=== PATIENT | male | born 1980 | race Caucasian/White ===

== ENCOUNTER 2016-06-11 15:43 | Emergency (ER) | payer SELFPAY ==
--- OUTSIDE RECORDS SUMMARY | 2016-06-11 16:24 | XMS REPORT | Continuity of Care Document ---
:1980 Demographics Address [address] [place] [address] Home Phone [phone] Preferred Language Unknown Marital Status Unknown Congregational Affiliation Zoroastrianism Race Unknown Ethnic Group Unknown Author Organization [facility] ([facility]) Address [address] [place] [address] Phone [phone] Care Team Providers Name Role Phone Unavailable Primary Care Provider Unavailable Source Comments This disclosure is being made pursuant to the Care Everywhere program, applicable federal and state laws, and may not contain all informaitonavailable regarding this patient.[facility] ([facility]) Active Allergies and Adverse Reactions Not on File Current Medications Not on file Active Problems Not on file Social History Tobacco Use Types Packs/Day Years Used Date Never Assessed Plan of Care Health Maintenance Due Date Last Done Comments Hepatitis B Vaccine (1 of 3 - Primary Series) 1980 Tdap Vaccine 1989 Lipid Disorder Screening 1996 MMR Vaccine 1996 Td Vaccine 1996 Influenza Vaccine: Seasonal (#1) 10/05/2015 Results from Last 3 Months Not on file
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
[2016-06-11 16:42] LABS: Hematocrit 44.8 % (42.0-52.0); Hemoglobin 15.7 gm/dL (13.5-18.0); Mean Cell Volume 85.7 fl (78-100); Mean Platelet Volume 9.1 fl (6.0-9.5); Neutrophil # 2.8 K/mm3 (1.3-6.0); Neutrophil % 50.9 % (42-75.0); Platelet Count 195 K/mm3 (150-450); Red Blood Count 5.23 M/mm3 (4.7-6.0); Red Cell Distribution Width 12.4 % (11.5-14.0); White Blood Count 5.5 K/mm3 (4.0-10.5)
[2016-06-11 16:57] LABS: Urine Appearance Clear; Urine Bilirubin Negative (NEGATIVE); Urine Blood Negative /ul (NEGATIVE); Urine Color Yellow; Urine Ketone Negative (NEGATIVE); Urine Nitrite Negative (NEGATIVE); Urine Protein 30 mg/dL (NEGATIVE); Urine RBC None Seen /hpf (0-5); Urine Urobilinogen Normal (NORMAL); Urine WBC None Seen /hpf (0-5)
[2016-06-11 16:58] LABS: Urine Bacteria None Seen
[2016-06-11 17:01] LABS: Cocaine Ur Negative (NEGATIVE); Urine Barbiturate Negative (NEGATIVE); Urine Benzodiazepines Negative (NEGATIVE); Urine Opiates Negative (NEGATIVE); Urine PCP Negative (NEGATIVE); Urine THC Negative (NEGATIVE)
[2016-06-11 17:05] LABS: ALT 46 U/L (19-67); AST 16 U/L (0-48); Albumin * 3.6 gm/dl (3.4-5.0); Alkaline Phosphatase * 63 U/L (50-170); Anion Gap 12.4 mmol/L (6.8-13.8); BUN/Creatinine Ratio 12.6 (9.0-21.6); Bilirubin, Total 0.3 mg/dL (0.0-1.1); Blood Urea Nitrogen 13 mg/dL (6-23); Ca. Corrected For Albumin 8.9 mg/dL (8.4-10.2); Calcium * 8.9 mg/dL (7.9-10.9); Carbon Dioxide 27.5 mmol/L (24-32.6); Chloride 107 mmol/L (97-106); Glucose * 124 mg/dL (70-110); Potassium 3.9 mmol/L (3.4-4.6); Sodium 143 mmol/L (132-142); TSH * 2.943 uIU/mL (0.358-3.74); Total Protein 7.4 gm/dL (6.2-8.2)
[2016-06-11 18:14] VITALS: BP 134/98
== END 2016-06-11 18:16 | disposition home or self-care (01) ==
LOC: ER 15:43
DX: R56.9 Unspecified convulsions (principal); Z72.0 Tobacco use
CPT/HCPCS: 36415; 70450; 80053; 80307; 81001; 84439; 84443; 85025; 99282; G0481

== ENCOUNTER 2016-11-03 12:14 | Emergency (ER) | payer OTHER ==
[2016-11-03 12:33] VITALS: BP 164/96
[2016-11-03] MEDS ORDERED: ACETAMINOPHEN 325 MG TABLET PO ONE (13:12)
[2016-11-03] MEDS ORDERED: IBUPROFEN 600 MG TABLET PO ONE (13:12)
[2016-11-03] MEDS ORDERED: IBUPROFEN 600 MG TABLET ONE (13:13)
[2016-11-03] MEDS ORDERED: ACETAMINOPHEN 325 MG TABLET ONE (13:13)
--- NOTE | 2016-11-03 13:23 | ERNOTE ---
Lower Extremity HPI - Narrative Date of Service: 11/03/16 - General Lower Extremities Pain: ankle: right Time Seen by Provider: 11/03/16 12:39 Source: patient, RN notes reviewed Exam Limitations: no limitations - Immun/Allergies/Home Medications Immunizations: IMMUNIZATION HX Immunizations Up to Date Yes History of Influenza Vaccine No Hx Pneumococcal Vaccination No Allergies/Adverse Reactions: Allergies Allergy/AdvReac Type Severity Reaction Status Date / Time aspirin Allergy Severe Verified 11/03/16 12:33 hydrocodone bitartrate Allergy Mild Verified 11/03/16 12:33 [From Vicodin] Home Medications: HOME MEDICATIONS NK [No Home Medication] 06/11/16 [Last Taken Unknown] - History of Present Illness Narrative: 36 y/o male presents to the ED with right lateral ankle pain. He rolled the ankle and fell down while mowing. He works for a lawn care service. He sprained the right ankle approximately a year ago. Date (Duration): 11/03/16 Occurred: this afternoon Location of Incident: work Method of Injury: Reports: twisted Modifying Factors - (Improves): Reports: immobilization Modifying Factors - (Worsens): Reports: movement Associated Symptoms: Reports: unable to bear weight. Denies: snapping, popping sensation Other Injuries: Reports: none Subsequent Symptoms: Denies: sensory loss, numbness, motor loss Prior Treament: Reports: similar symptoms before. Denies: recently seen Review of Systems - Review of Systems Constitutional: Present: no symptoms reported EYE: Present: no symptoms reported ENT: Present: no symptoms reported Respiratory: Present: no symptoms reported Cardiology: Present: no symptoms reported Gastrointestinal/Abdominal: Present: no symptoms reported Genitourinary: Present: no symptoms reported Musculoskeletal: Present: joint pain, joint swelling Skin: Absent: lesions, lumps, change in color Neurological: Present: See HPI Endocrine: Present: no symptoms reported Hematologic/Lymphatic: Absent: easy bruising, easy bleeding Psych: Present: no symptoms reported - Patient's Past Medical History Patient History - Medical: Anxiety, Bipolar, Other Patient History - Cardiac/Respiratory: Hyperlipidemia, Myocardial Infarction Patient History - Cancer: No Hx of Cancer Patient History - Surgical Procedures: Cardiac stent Patient History - Other: None - Family History Mother Family History - Medical: Father Family History - Medical: Diabetes Type 1 Family History - Cardiac/Respiratory: Coronary Heart Disease - Social History Living Situations: home Abuse History: No History of abuse Psych History: Hx of Anxiety, Hx of Bipolar Disorder Smoking Status: Current every day smoker Have you smoked in the past 12 months: Yes Alcohol Use: occasionally Drug Use: none - Immunizations Immunizations Up to Date: Yes Hx Pneumococcal Vaccination: No History of Influenza Vaccine: No Physical Exam - Physical Exam General Appearance: Present: wd/wn, alert, mild distress Head Exam: Present: normal inspection Respiratory: Present: no respiratory distress, no accessory muscle use Peripheral Pulses: N=norm/S=strong/W=weak/B=bound/A=absent: Dorsalis-pedis (R): Strong Extremity Exam: Present: decreased range of motion - Right ankle, bony tenderness - Right lateral ankle, joint swelling - Right lateral ankle Neurological Exam: Present: alert, oriented, normal mood/affect, no motor/ sensory deficits Skin Exam: Present: normal color, warm/dry ED Progress - Vital Signs Patient's Vital Signs:: I have reviewed the patient's vital signs. Vital Signs: Vital Signs 11/03/16 12:29 Temperature 36.3 C L Pulse Rate 116 H Respiratory 16 Rate Blood Pressure 164/96 O2 Sat by Pulse 97 Oximetry - X-Ray X-Ray #1 X-Ray: ankle Interpretation: Reviewed by me X-ray Comments: No acute osseous abnormality present - Progress/Reassessment Chief Complaint: Ankle Injury/ Pain Progress:: Improved Procedures Location: Right ankle Pre-Made Type: MICHEL wrap and Cam boot Alignment good: Yes Splint applied by: Nurse Post-Proc Neuro Vasc Exam: normal Complications: Pt rey procedure well Departure Clinical Impression: Ankle sprain Qualifiers: Encounter type: initial encounter Involved ligament of ankle: unspecified ligament Laterality: right Qualified Code(s): S93.401A - Sprain of unspecified ligament of right ankle, initial encounter - Departure Disposition: Home Follow Up Needed Condition: Stable Instructions: Ankle Sprain Additional Instructions: See occupational health instruction sheet Referrals: Brandy Self, ANGELIQUE [[facility]] -
== END 2016-11-03 13:35 | disposition home or self-care (01) ==
LOC: ER 12:14
PROC: 2W3SX1Z Immobilization of Right Foot using Splint (ICD-10-PCS; principal; 2016-11-03)
DX: S93.401A Sprain of unspecified ligament of right ankle, initial encounter (principal); W18.39XA Other fall on same level, initial encounter; Y93.H2 Activity, gardening and landscaping; Y92.9 Unspecified place or not applicable; Y99.0 Civilian activity done for income or pay; F17.200 Nicotine dependence, unspecified, uncomplicated